=== PATIENT | female | born 1990 | race Caucasian/White ===

== ENCOUNTER 2017-03-11 15:33 | Emergency (ER) | payer SELFPAY ==
[~2017-03-11] VITALS: Ht 160 cm; Wt 75.0 kg
[~2017-03-11 15:33] MED LIST: Z.0.NO CURRENT MEDS
[2017-03-11 15:35] VITALS: BP 144/95; PULSE 112; RESP 15; TEMP 98.3; O2SAT 99
--- NOTE | 2017-03-11 16:18 | PD ---
HPI Chief Complaint: Skin Problem Time Seen by Provider: 16:15 Travel History International Travel<30 days: No Contact w/Intl Traveler<30days: No Traveled to known affect area: No History of Present Illness HPI 26-year-old female presents to the emergency Department with complaint of rash to sun exposed areas from 2 weeks ago. She says the rash is itchy. When the sun exposure occurred she was laying on her front reading a book, so her backside was mainly exposed to sun. She was seen about a week ago and was given steroids and told she had contact dermatitis. She just finished taking the steroids yesterday. The rash has gotten a little better, but slowly. She denies fever, vomiting. Denies airway edema or shortness of breath. She did use a sunscreen the day she was sunburned that she has not ever used before. [place] of sun exposure in her life. She has tried aloe vera, Benadryl with no relief of symptoms. Cool compresses relieve the itching and pain to the areas. Reports environmental allergies. Denies allergies to medications. Has no other medical complaints. No other modifying factors or associated signs and symptoms. PFSH Past Medical History Cancer: No Diabetes: No Glaucoma: No Hepatitis: No Hiatal Hernia: No Hypertension: No Thyroid Disease: No ?: Not Social History Alcohol Use: Yes (none) Tobacco Use: Yes (1/2 ppd) Allergies-Medications (Allergen,Severity, Reaction): Coded Allergies: No Known Allergies (Verified , 12/01/08) Reported Meds & Prescriptions Reported Meds & Active Scripts Active Reported No Current Meds (Miscellaneous Medication) [facility] [place] Review of Systems Except as stated in HPI: all other systems reviewed are Neg Physical Exam Narrative GENERAL: Well-nourished, well-developed female patient, in no acute distress; afebrile, nontoxic-appearing SKIN: Warm and dry. Erythematous, blanching rash to upper back and bilateral posterior legs; a few patches of similar rash are noted to the chest, bilateral antecubitals, left inner upper thigh. No areas consistent with cellulitis. HEAD: Atraumatic. Normocephalic. EYES: Pupils equal and round. No scleral icterus. No injection or drainage. ENT: Mucosa pink and moist. Airway patent. NECK: Trachea midline. CARDIOVASCULAR: Regular rate. RESPIRATORY: No accessory muscle use. GASTROINTESTINAL: Rounded. MUSCULOSKELETAL: No obvious deformities. No clubbing. No cyanosis. No edema. NEUROLOGICAL: Awake and alert. Oriented 3. No obvious cranial nerve deficits. Motor grossly within normal limits. Normal speech. PSYCHIATRIC: Appropriate mood and affect; insight and judgment normal. Data Data Last Documented VS Vital Signs Date Time Temp Pulse Resp B/P Pulse Ox O2 Delivery O2 Flow Rate FiO2 03/11/17 15:35 98.3 112 15 144/95 99 MDM Medical Decision Making Medical Screen Exam Complete: Yes Emergency Medical Condition: Yes Medical Record Reviewed: Yes Differential Diagnosis Sunburn, photo allergy, nonspecific rash and skin eruption Narrative Course 26-year-old female with unspecific rash and skin eruption to the back side of her upper back and legs after being sunburned about 2 weeks ago. Patient just completed a dose of steroids yesterday with no minimal improvement in symptoms. She is afebrile and nontoxic-appearing. Heart rate recheck on physical exam is approximately 90 bpm. She denies fever, vomiting. Reports the rash is itchy and slowly improving. There are no signs of infection and I believe the rash is secondary to allergy to the sun. Instructed Patient to follow up with dermatology. Provided patient information sheet to [facility] [place]. Patient verbalizes understanding and agreement with treatment plan. Patient is medically cleared and stable for discharge. Discussed reasons to return to the emergency department. Instructed patient to follow up with primary care provider. Patient agrees with treatment plan. The patients vital signs are stable and the patient is stable for outpatient follow-up and treatment. Patient discharged home, stable and in no acute distress. Diagnosis Primary Impression: Rash and nonspecific skin eruption Additional Impression: Sunburn, unspecified Referrals: [facility] Primary Care Physician Patient Instructions: General Instructions, Sunburn (ED) Departure Forms: Tests/Procedures, Work Release Enter return to work date: March 12, 2017 Additional Instructions: Tylenol as directed and as needed for pain Cool Compresses and cool soak baths to decrease pain and itching Follow-up with dermatology Follow-up with primary care provider Return to the emergency department immediately if worsening symptoms Med/Other Pt SpecificInfo: No Meds Exist/No RX given Disposition: DISCHARGE HOME Condition: Stable Kizzy Valentin March 11, 2017 16:18
== END 2017-03-11 16:28 | disposition home or self-care (01) ==
LOC: NEPK 15:33
DX: R21 Rash and other nonspecific skin eruption (principal); L55.9 Sunburn, unspecified; F17.200 Nicotine dependence, unspecified, uncomplicated
CPT/HCPCS: 99282

== ENCOUNTER 2018-02-16 02:24 | Emergency (ER) | payer OTHER ==
[2018-02-16 02:33] VITALS: BP 150/71; PULSE 107; RESP 19; TEMP 98.6; O2SAT 96
--- NOTE | 2018-02-16 03:00 | RADRPT ---
EXAM DATE/TIME: 02/16/2018 02:46 [facility] COMPARISON: No previous studies available for comparison. INDICATIONS : Left upper chest pain starting tonight MEDICAL HISTORY : None. SURGICAL HISTORY : None. ENCOUNTER: Initial ACUITY: 1 day PAIN SCORE: 7/10 LOCATION: Left upper chest FINDINGS: A single view of the chest demonstrates the lungs to be symmetrically aerated without evidence of mas s, infiltrate or effusion. The cardiomediastinal contours are unremarkable. Osseous structures are intact. CONCLUSION: No acute disease. Atilio Young MD on February 16, 2018 at 2:57 Board Certified Radiologist. This report was verified electronically.
[2018-02-16 03:04] LABS: AUTOMATED NEUTROPHIL # 6.6 TH/MM3 (1.8-7.7); BASOPHIL % 0.2 % (0.0-2.0); EOSINOPHIL # 0.2 TH/MM3 (0-0.4); EOSINOPHIL % 1.5 % (0.0-4.0); HEMATOCRIT 44.4 % (35.0-46.0); HEMOGLOBIN 15.7 GM/DL (11.6-15.3); LYMPH % 33.4 % (9.0-44.0); LYMPHOCYTE # 3.6 TH/MM3 (1.0-4.8); MEAN CELL VOLUME 89.1 FL (80.0-100.0); MEAN CORPUSCULAR HEMOGLOBIN 31.5 PG (27.0-34.0); MEAN CORPUSCULAR HGB CONC 35.4 % (32.0-36.0); MONO % 4.3 % (0.0-8.0); MONOCYTE # 0.5 TH/MM3 (0-0.9); NEUT % 60.6 % (16.0-70.0); PLATELET COUNT 368 TH/MM3 (150-450); RED BLOOD COUNT 4.98 MIL/MM3 (4.00-5.30); RED CELL DISTRIBUTION WIDTH 11.8 % (11.6-17.2); WHITE BLOOD COUNT 10.9 TH/MM3 (4.0-11.0)
[2018-02-16 03:10] LABS: BILIRUBIN, URINE NEG (NEG); BLOOD, URINE NEG (NEG); GLUCOSE,URINE NEG (NEG); KETONE, URINE NEG (NEG); NITRITE,URINE NEG (NEG); URINE COLOR YELLOW (YELLW/STRAW); URINE LEUKOCYTE ESTERASE NEG (NEG)
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
[2018-02-16 03:23] LABS: BACTERIA, URINE RARE /hpf; HYALINE CAST, URINE 2 /lpf (RARE); MUCUS URINE FEW /lpf (OCC); SQUAMOUS EPITHELIAL CELL URINE 11 /hpf (0-5)
[2018-02-16 03:39] LABS: ALBUMIN 4.1 GM/DL (3.4-5.0); ALKALINE PHOSPHATASE 82 U/L (45-117); ALT (GPT) 38 U/L (10-53); AST (GOT) 20 U/L (15-37); BICARBONATE 29.3 MEQ/L (21.0-32.0); BLOOD UREA NITROGEN 7 MG/DL (7-18); CALCIUM 8.9 MG/DL (8.5-10.1); CHLORIDE 105 MEQ/L (98-107); GLOMERULAR FILTRATION RATE 75 ML/MIN (>89); GLUCOSE,RANDOM 88 MG/DL (74-106); SODIUM (NA) 142 MEQ/L (136-145); TOTAL BILIRUBIN ADULT 0.2 MG/DL (0.2-1.0)
[2018-02-16 03:41] LABS: ACETAMINOPHEN LESS THAN 2.0 MCG/ML (10.0-30.0)
[2018-02-16 03:45] VITALS: BP 123/83; PULSE 105; RESP 18; TEMP 98.2; O2SAT 98
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
== END 2018-02-16 12:43 | disposition home or self-care (01) ==
LOC: NEPD 02:24 → NEPJ 12:43
DX: S40.012A Contusion of left shoulder, initial encounter (principal); Y04.8XXA Assault by other bodily force, initial encounter; E28.2 Polycystic ovarian syndrome; F17.200 Nicotine dependence, unspecified, uncomplicated; F41.9 Anxiety disorder, unspecified; F31.9 Bipolar disorder, unspecified
CPT/HCPCS: 70450; 70486; 71045; 80053; 80307; 81001; 84443; 84703; 85025; 99285